=== PATIENT | male | born 1945 | race Caucasian/White ===

== ENCOUNTER 2022-03-07 14:08 | Observation (INO) | payer MEDICARE ==
[2022-03-07] MEDS ORDERED: Melatonin 3 MG Tab PO PRN (15:23)
[2022-03-07] MEDS ORDERED: Morphine 2 MG/ML SYRINGE IVPUSH PRN (15:23)
[2022-03-07] MEDS ORDERED: LORazepam 2 MG/ML SDV IVPUSH PRN (15:23)
[2022-03-07] MEDS ORDERED: Ondansetron 4 MG/2 ML SDV IV PRN (15:23)
[2022-03-07] MEDS ORDERED: Magnesium Hydroxide 400 MG/5 ML Susp 30 ML Cup PO PRN (15:23)
[2022-03-07] MEDS ORDERED: Ondansetron 4 MG Tab.DIS PO PRN (15:23)
[2022-03-07] MEDS ORDERED: tiZANidine 2 MG Tab PO PRN (15:27)
[2022-03-07] MEDS: oxyCODONE 5 MG Tab PO PRN (16:15)
[2022-03-07] MEDS ORDERED: Non-Formulary Medication 1 Each (Metformin [Glucophage] 1,000 MG Tablet) PO SCH (17:00)
[2022-03-07] MEDS ORDERED: METOPROLOL SUCCINATE 25 MG PO SCH (17:00)
[2022-03-07] MEDS: Metoprolol Succinate 25 MG Tab.ER (PTOM) PO SCH (17:32)
[2022-03-07] MEDS: METFORMIN ER 500MG TAB (PTOM) PO SCH (17:32)
[2022-03-07] MEDS: ROSUVASTATIN 20 MG PO SCH (20:36)
[2022-03-07] MEDS: Acetaminophen 500 MG Tab PO SCH (20:36)
[2022-03-07] MEDS ORDERED: [UNRECOGNIZED DRUG - OTHER] PO SCH (21:00)
[2022-03-07] MEDS ORDERED: DOCUSATE SODIUM PO SCH (21:00)
[2022-03-07] MEDS ORDERED: SENNOSIDES PO SCH (21:00)
[2022-03-08] MEDS: Pantoprazole 40 MG Tab.CR (PTOM) PO SCH (07:28)
[2022-03-08] MEDS ORDERED: BUMETANIDE 1 MG PO SCH (08:00)
[2022-03-08] MEDS ORDERED: Non-Formulary Medication 1 Each (Lisinopril [Lisinopril] 40 MG Tablet) PO SCH (09:00)
[2022-03-08] MEDS ORDERED: Non-Formulary Medication 1 Each (Ubidecarenone [Co Q-10] 100 MG Capsule) PO SCH (09:00)
[2022-03-08] MEDS ORDERED: Non-Formulary Medication 1 Each (Aspirin [Aspirin] 325 MG Tablet) PO SCH (09:00)
[2022-03-08] MEDS ORDERED: Non-Formulary Medication 1 Each (Pantoprazole [ProTONIX***] 40 MG Tab.Cr) PO SCH (09:00)
[2022-03-08] MEDS ORDERED: Non-Formulary Medication 1 Each (Rosuvastatin [Crestor] 10 MG Tablet) PO SCH (09:00)
[2022-03-08] MEDS ORDERED: ROSUVASTATIN 20 MG PO SCH (09:00)
[2022-03-08] MEDS ORDERED: VENLAFAXINE HCL 37.5 MG PO SCH (09:00)
[2022-03-08] MEDS: BUMETANIDE 1 MG PO SCH ×3 (10:23→20:27)
[2022-03-08] MEDS: METFORMIN ER 500MG TAB (PTOM) PO SCH ×2 (10:24→17:09)
[2022-03-08] MEDS: Aspirin 325 MG Tab.EC PO SCH (10:24)
[2022-03-08] MEDS: Enoxaparin 40 MG/0.4 ML Syringe SUBCUT SCH (10:24)
[2022-03-08] MEDS: VENLAFAXINE 37.5 MG PO SCH (10:24)
[2022-03-08] MEDS: LISINOPRIL 40MG TAB (PTOM) PO SCH (10:25)
[2022-03-08] MEDS: CO Q PO SCH (10:25)
[2022-03-08] MEDS: Acetaminophen 500 MG Tab PO SCH ×3 (10:27→20:26)
[2022-03-08] MEDS: oxyCODONE 5 MG Tab PO PRN ×2 (17:06→22:28)
[2022-03-08] MEDS: Metoprolol Succinate 25 MG Tab.ER (PTOM) PO SCH (18:03)
[2022-03-08] MEDS: ROSUVASTATIN 20 MG PO SCH (20:29)
[2022-03-09] MEDS: Pantoprazole 40 MG Tab.CR (PTOM) PO SCH (07:39)
[2022-03-09] MEDS: METFORMIN ER 500MG TAB (PTOM) PO SCH ×2 (07:39→16:29)
[2022-03-09] MEDS: BUMETANIDE 1 MG PO SCH ×2 (08:48→21:27)
[2022-03-09] MEDS: Aspirin 325 MG Tab.EC PO SCH (08:51)
[2022-03-09] MEDS: LISINOPRIL 40MG TAB (PTOM) PO SCH (08:51)
[2022-03-09] MEDS: VENLAFAXINE 37.5 MG PO SCH (08:52)
[2022-03-09] MEDS: Enoxaparin 40 MG/0.4 ML Syringe SUBCUT SCH (08:52)
[2022-03-09] MEDS: CO Q PO SCH (08:52)
[2022-03-09] MEDS: Acetaminophen 500 MG Tab PO SCH ×3 (08:53→21:29)
[2022-03-09] MEDS: oxyCODONE 5 MG Tab PO PRN ×2 (14:16→21:30)
[2022-03-09] MEDS: Metoprolol Succinate 25 MG Tab.ER (PTOM) PO SCH (16:28)
[2022-03-09] MEDS: ROSUVASTATIN 20 MG PO SCH (21:28)
[2022-03-10] MEDS: Pantoprazole 40 MG Tab.CR (PTOM) PO SCH (07:53)
[2022-03-10] MEDS: METFORMIN ER 500MG TAB (PTOM) PO SCH ×2 (07:53→16:38)
[2022-03-10] MEDS: oxyCODONE 5 MG Tab PO PRN ×2 (08:02→20:33)
[2022-03-10] MEDS: BUMETANIDE 1 MG PO SCH ×2 (09:24→20:35)
[2022-03-10] MEDS: Enoxaparin 40 MG/0.4 ML Syringe SUBCUT SCH (09:27)
[2022-03-10] MEDS: Aspirin 325 MG Tab.EC PO SCH (09:27)
[2022-03-10] MEDS: Acetaminophen 500 MG Tab PO SCH ×3 (09:27→20:32)
[2022-03-10] MEDS: CO Q PO SCH (09:27)
[2022-03-10] MEDS: VENLAFAXINE 37.5 MG PO SCH ×2 (09:28→14:19)
[2022-03-10] MEDS: LISINOPRIL 40MG TAB (PTOM) PO SCH (09:28)
[2022-03-10] MEDS: Metoprolol Succinate 25 MG Tab.ER (PTOM) PO SCH (16:38)
[2022-03-10] MEDS: ROSUVASTATIN 20 MG PO SCH (20:32)
[2022-03-11] MEDS: oxyCODONE 5 MG Tab PO PRN ×3 (02:21→20:45)
[2022-03-11] MEDS: Pantoprazole 40 MG Tab.CR (PTOM) PO SCH (07:34)
[2022-03-11] MEDS: METFORMIN ER 500MG TAB (PTOM) PO SCH ×2 (07:35→16:51)
[2022-03-11] MEDS: LISINOPRIL 40MG TAB (PTOM) PO SCH (08:14)
[2022-03-11] MEDS: VENLAFAXINE 37.5 MG PO SCH (08:14)
[2022-03-11] MEDS: CO Q PO SCH (08:15)
[2022-03-11] MEDS: Acetaminophen 500 MG Tab PO SCH ×3 (08:15→21:54)
[2022-03-11] MEDS: Enoxaparin 40 MG/0.4 ML Syringe SUBCUT SCH (08:15)
[2022-03-11] MEDS: Aspirin 325 MG Tab.EC PO SCH (08:15)
[2022-03-11] MEDS: BUMETANIDE 1 MG PO SCH ×2 (08:16→20:34)
[2022-03-11] MEDS: Metoprolol Succinate 25 MG Tab.ER (PTOM) PO SCH (16:50)
[2022-03-11] MEDS: ROSUVASTATIN 20 MG PO SCH (20:47)
[2022-03-12] MEDS: oxyCODONE 5 MG Tab PO PRN ×2 (03:14→08:28)
[2022-03-12] MEDS: Pantoprazole 40 MG Tab.CR (PTOM) PO SCH (07:35)
[2022-03-12] MEDS: METFORMIN ER 500MG TAB (PTOM) PO SCH (07:35)
[2022-03-12 07:36] VITALS: BP 141/71; PULSE 90
[2022-03-12] MEDS: Enoxaparin 40 MG/0.4 ML Syringe SUBCUT SCH (08:29)
[2022-03-12] MEDS: VENLAFAXINE 37.5 MG PO SCH (08:29)
[2022-03-12] MEDS: BUMETANIDE 1 MG PO SCH (08:29)
[2022-03-12] MEDS: Aspirin 325 MG Tab.EC PO SCH (08:29)
[2022-03-12] MEDS: LISINOPRIL 40MG TAB (PTOM) PO SCH (08:30)
[2022-03-12] MEDS: CO Q PO SCH (08:30)
[2022-03-12] MEDS: Acetaminophen 500 MG Tab PO SCH (08:30)
== END 2022-03-12 11:45 ==
LOC: JP.MS 14:08
PROVIDERS: ADMIT Internal Medicine; ATTEND Hospitalist
DX: S42.145D Nondisplaced fracture of glenoid cavity of scapula, left shoulder, subsequent encounter for fracture with routine healing (principal); S82.141D Displaced bicondylar fracture of right tibia, subsequent encounter for closed fracture with routine healing; E11.69 Type 2 diabetes mellitus with other specified complication; I25.10 Atherosclerotic heart disease of native coronary artery without angina pectoris; Z95.1 Presence of aortocoronary bypass graft; Z96.642 Presence of left artificial hip joint; Z79.84 Long term (current) use of oral hypoglycemic drugs; Z79.82 Long term (current) use of aspirin; Z79.899 Other long term (current) drug therapy; Z20.822 Contact with and (suspected) exposure to COVID-19; W01.0XXA Fall on same level from slipping, tripping and stumbling without subsequent striking against object, initial encounter; Y93.01 Activity, walking, marching and hiking
CPT/HCPCS: 36415; 73200-26-LT; 73200-LT; 80048; 85027; 96372; 97110-GO; 97110-GP; 97116-GP; 97162-GP; 97165-GO; 97530-GP; 97535-GP; A9270-GY; G0378; G0379; J1650; U0002

== ENCOUNTER 2024-11-04 07:00 | Inpatient (IN) | payer MEDICARE ==
[2024-11-04 07:36] LABS: BASOPHILS ABSOLUTE AUTO 0.03 K/uL (0.00-0.10); BASOPHILS PERCENT AUTO 0.4 % (0.1-1.3); EOSINOPHILS PERCENT AUTO 0.3 % (0.0-5.4); HEMATOCRIT 38.4 % (38.4-49.7); HEMOGLOBIN 13.4 g/dL (12.9-16.9); IMMATURE GRAN ABSOLUTE AUTO 0.03 K/uL (0.00-0.23); IMMATURE GRAN PERCENT AUTO 0.4 % (0.0-0.7); LYMPHOCYTES ABSOLUTE AUTO 0.64 K/uL (0.8-3.3); LYMPHOCYTES PERCENT AUTO 8.3 % (11.4-47.7); MEAN CORPUSCULAR HEMOGLOBIN 31.2 pg (31.6-35.5); MEAN CORPUSCULAR HGB CONC 34.9 g/dL (31.6-35.5); MEAN CORPUSCULAR VOLUME 89.3 fL (81.4-99.0); MONOCYTES ABSOLUTE AUTO 0.99 K/uL (0.20-0.90); MONOCYTES PERCENT AUTO 12.8 % (3.3-12.6); NEUTROPHILS ABSOLUTE AUTO 6.01 K/uL (1.0-7.6); NEUTROPHILS PERCENT AUTO 77.8 % (40.0-78.1); PLATELET COUNT,PLT 198 K/uL (130-375); WHITE BLOOD CELL COUNT,WBC 7.7 K/uL (3.2-11.0)
[2024-11-04 07:38] LABS: APPEARANCE,URINE CLEAR (CLEAR); BILIRUBIN,URINE NEGATIVE (NEGATIVE); COLOR,URINE YELLOW (YELLOW); GLUCOSE,URINE NEGATIVE (NEGATIVE); KETONES,URINE TRACE mg/dL (NEGATIVE); LEUKOCYTE ESTERASE,URINE NEGATIVE (NEGATIVE); NITRITE,URINE NEGATIVE (NEGATIVE); OCCULT BLOOD,URINE TRACE-LYSED (NEGATIVE); PH,URINE 5.5 (5.0-8.0); PROTEIN,URINE 30 mg/dL (NEGATIVE); UROBILINOGEN,URINE 0.2 EU/dL (0.2-1.0)
[2024-11-04 07:43] LABS: EOSINOPHILS ABSOLUTE AUTO 0.02 K/uL (0.00-0.40)
[2024-11-04] MEDS: Sodium Chloride 0.9% 1,000 ML IV SCH ×2 (07:43→13:46)
[2024-11-04 07:49] LABS: AMORPHOUS SEDIMENT,URINE NOT SEEN; BACTERIA,URINE RARE; EPITHELIAL CELLS,URINE RARE; MUCUS,URINE NOT SEEN; RBC,URINE 0-5 (0-5); WBC,URINE 0-5 (0-5)
[2024-11-04 07:59] LABS: ALANINE AMINOTRANSFERASE,ALT 13 U/L (12-78); ALBUMIN 3.6 g/dL (3.4-5.0); ALKALINE PHOSPHATASE 95 U/L (46-116); ASPARTATE AMNIOTRANSFERASE,AST 28 U/L (15-37); BILIRUBIN TOTAL 0.5 mg/dL (0.2-1.0); BLOOD UREA NITROGEN,BUN 14 mg/dL (7-18); CALCIUM 9.4 mg/dL (8.5-10.1); CARBON DIOXIDE,CO2 27 mmol/L (21-32); CHLORIDE,CL 102 mmol/L (100-108); CREATINE KINASE,CK 614 U/L (39-308); CREATININE 1.2 mg/dL (0.8-1.3); EST CRCL DRUG DOSING (CG) 54.79 mL/min; ESTIMATED GFR 62 mL/min (>60); GLUCOSE RANDOM 133 mg/dL (74-106); POTASSIUM,K 3.4 mmol/L (3.6-5.2); PROTEIN TOTAL,TP 7.1 g/dL (6.4-8.2); SODIUM,NA 139 mmol/L (140-148); TROPONIN I HIGH SENSITIVITY 46.6 pg/mL (<=60.3)
[2024-11-04 08:00] LABS: ANION GAP 13.4 mmol/L (5.0-14.0)
[2024-11-04] MEDS: Sodium Chloride 0.9% 1,000 ML IV ONE (09:14)
[2024-11-04] MEDS: Potassium Chloride 20 MEQ Tab.ER PO ONE (09:14)
[2024-11-04] MEDS ORDERED: 50% Dextrose in Water 50 ML Syringe IV PRN (13:24)
[2024-11-04] MEDS ORDERED: Sodium Chloride 0.9% 10 ML Syringe FLUSH PRN (13:24)
[2024-11-04] MEDS ORDERED: Glucose Gel 15 GM in 37.5 GM Tube PO PRN (13:24)
[2024-11-04] MEDS ORDERED: Ondansetron 4 MG/2 ML SDV IV PRN (13:24)
[2024-11-04] MEDS: Insulin Lispro 100 Unit/ML 3 ML KwikPen SUBCUT SCH (13:45)
[2024-11-04] MEDS: Rosuvastatin 10 MG Tab PO SCH (14:48)
[2024-11-04] MEDS: Polyethylene Glycol 3350 Powder 17 GM Packet PO SCH (14:49)
[2024-11-04] MEDS: Venlafaxine 37.5 MG Cap.ER PO SCH (14:49)
[2024-11-04] MEDS: Enoxaparin 40 MG/0.4 ML Syringe SUBCUT SCH (14:49)
[2024-11-04] MEDS: Aspirin 325 MG Tab.EC PO SCH (14:49)
[2024-11-04] MEDS: Sennosides/Docusate Sodium 50-8.6 MG Tab PO SCH (14:49)
[2024-11-04] MEDS: Lisinopril 20 MG Tab PO SCH (14:49)
[2024-11-04] MEDS: Pantoprazole 40 MG Tab.CR PO SCH (14:49)
[2024-11-04] MEDS: Metoprolol Succinate 25 MG Tab.ER PO SCH (16:39)
[2024-11-05 05:01] LABS: HEMATOCRIT 36.4 % (38.4-49.7); HEMOGLOBIN 12.7 g/dL (12.9-16.9); MEAN CORPUSCULAR HEMOGLOBIN 31.5 pg (31.6-35.5); MEAN CORPUSCULAR HGB CONC 34.9 g/dL (31.6-35.5); MEAN CORPUSCULAR VOLUME 90.3 fL (81.4-99.0); RED BLOOD CELL COUNT 4.03 M/uL (4.14-5.76); WHITE BLOOD CELL COUNT,WBC 6.1 K/uL (3.2-11.0)
[2024-11-05 05:17] LABS: ANION GAP 8.1 mmol/L (5.0-14.0); CALCIUM 8.7 mg/dL (8.5-10.1); CREATININE 1.1 mg/dL (0.8-1.3); EST CRCL DRUG DOSING (CG) 59.77 mL/min; MAGNESIUM 1.6 mg/dL (1.8-2.4); POTASSIUM,K 3.6 mmol/L (3.6-5.2)
[2024-11-05] MEDS: Magnesium Sulfate/Water Premix 2 GM in Premix Bag 1 BAG IV SCH (09:39)
[2024-11-05] MEDS: Magnesium Oxide 400 MG Tab PO SCH (09:39)
[2024-11-05] MEDS ORDERED: Haloperidol Lactate 5 MG/ML SDV IVPUSH PRN (17:19)
[2024-11-05] MEDS: Gentamicin 0.3% Ophth Soln 5 ML Bottle EYELF SCH (21:22)
[2024-11-05] MEDS: Acetaminophen 325 MG Tab PO PRN (21:22)
[2024-11-05] MEDS: Melatonin 3 MG Tab PO SCH (21:23)
[2024-11-06 06:17] LABS: MAGNESIUM 1.9 mg/dL (1.8-2.4)
[2024-11-07] MEDS: prednisoLONE Acetate 1% Ophth Susp 5 ML Bottle EYELF SCH (15:21)
[2024-11-08 06:04] VITALS: BP 123/58; PULSE 68
[2024-11-09] MEDS ORDERED: DULAGLUTIDE 0.75 MG/0.5 ML SUBCUT SCH (09:00)
== END 2024-11-08 11:12 | disposition home or self-care (01) | DRG 564 ==
LOC: JP.ED 07:00 → JP.MS 08:54
PROVIDERS: ADMIT Hospitalist; ATTEND Internal Medicine
DX: T79.6XXA Traumatic ischemia of muscle, initial encounter (principal); U07.1 COVID-19; I10 Essential (primary) hypertension; E11.9 Type 2 diabetes mellitus without complications; I25.10 Atherosclerotic heart disease of native coronary artery without angina pectoris; E83.42 Hypomagnesemia; G30.9 Alzheimer's disease, unspecified; F02.80 Dementia in other diseases classified elsewhere, unspecified severity, without behavioral disturbance, psychotic disturbance, mood disturbance, and anxiety; W19.XXXA Unspecified fall, initial encounter; Y92.009 Unspecified place in unspecified non-institutional (private) residence as the place of occurrence of the external cause; H91.90 Unspecified hearing loss, unspecified ear; E11.69 Type 2 diabetes mellitus with other specified complication; Z96.649 Presence of unspecified artificial hip joint; Z79.899 Other long term (current) drug therapy; Z79.82 Long term (current) use of aspirin; Z79.84 Long term (current) use of oral hypoglycemic drugs; Z95.1 Presence of aortocoronary bypass graft; Z98.890 Other specified postprocedural states; Z85.46 Personal history of malignant neoplasm of prostate; Z87.81 Personal history of (healed) traumatic fracture
CPT/HCPCS: 36415; 80053; 81001; 82550; 84484; 85025; 87428; 93005; 96360; 99285; J7030; 80048; 82947; 83735; 85027; 93010; 97110-GP; 97161-GP; 97530-GP; 99223; 99233; 99238; A9270-GY; C1758; J1650; J3475

== ENCOUNTER 2025-09-25 21:03 | Emergency (ER) | payer MEDICARE ==
[2025-09-25 21:11] LABS: BASOPHILS PERCENT AUTO 0.1 % (0.1-1.3); EOSINOPHILS PERCENT AUTO 0.1 % (0.0-5.4); IMMATURE GRAN PERCENT AUTO 0.3 % (0.0-0.7); LYMPHOCYTES ABSOLUTE AUTO 0.22 K/uL (0.8-3.3); LYMPHOCYTES PERCENT AUTO 3.2 % (11.4-47.7); MONOCYTES ABSOLUTE AUTO 0.23 K/uL (0.20-0.90); MONOCYTES PERCENT AUTO 3.4 % (3.3-12.6); NEUTROPHILS ABSOLUTE AUTO 6.36 K/uL (1.0-7.6); NEUTROPHILS PERCENT AUTO 92.9 % (40.0-78.1); PLATELET COUNT,PLT 215 K/uL (130-375); RED BLOOD CELL COUNT 4.73 M/uL (4.14-5.76); WHITE BLOOD CELL COUNT,WBC 6.9 K/uL (3.2-11.0)
[2025-09-25 21:12] LABS: BASOPHILS ABSOLUTE AUTO 0.01 K/uL (0.00-0.10); EOSINOPHILS ABSOLUTE AUTO 0.01 K/uL (0.00-0.40); IMMATURE GRAN ABSOLUTE AUTO 0.02 K/uL (0.00-0.23)
[2025-09-25 21:32] LABS: A/G RATIO 1.1 (1.2-2.2); ALANINE AMINOTRANSFERASE,ALT 18 U/L (12-78); ASPARTATE AMNIOTRANSFERASE,AST 19 U/L (15-37); BILIRUBIN TOTAL 0.7 mg/dL (0.2-1.0); BLOOD UREA NITROGEN,BUN 24 mg/dL (7-18); CARBON DIOXIDE,CO2 23 mmol/L (21-32); CHLORIDE,CL 99 mmol/L (100-108); CREATININE 1.3 mg/dL (0.8-1.3); EST CRCL DRUG DOSING (CG) 49.81 mL/min; ESTIMATED GFR 56 mL/min (>60); GLUCOSE RANDOM 171 mg/dL (74-106); POTASSIUM,K 4.0 mmol/L (3.6-5.2); PROTEIN TOTAL,TP 7.2 g/dL (6.4-8.2); SODIUM,NA 135 mmol/L (140-148)
[2025-09-25] MEDS: Ondansetron 4 MG/2 ML SDV IVPUSH ONE (21:36)
[2025-09-25] MEDS: Iopamidol 612 MG/ML 100 ML Bottle IV SCH (22:11)
[2025-09-25 23:08] VITALS: BP 130/66; PULSE 93
[2025-09-25 23:46] LABS: APPEARANCE,URINE CLEAR (CLEAR); GLUCOSE,URINE NEGATIVE (NEGATIVE); OCCULT BLOOD,URINE TRACE-INTACT (NEGATIVE)
[2025-09-26 00:13] LABS: SQUAMOUS EPITHELIAL CELLS,UR RARE /HPF; UROTHELIAL CELLS,URINE NOT SEEN /HPF
== END 2025-09-26 00:50 | disposition home or self-care (01) ==
LOC: JP.ED 21:03
DX: R11.2 Nausea with vomiting, unspecified (principal); R19.7 Diarrhea, unspecified; I10 Essential (primary) hypertension; E11.9 Type 2 diabetes mellitus without complications; Z95.5 Presence of coronary angioplasty implant and graft; Z79.82 Long term (current) use of aspirin; Z79.84 Long term (current) use of oral hypoglycemic drugs; Z79.899 Other long term (current) drug therapy
CPT/HCPCS: 36415; 71045; 74177; 80053; 81001; 85025; 93005; 96361; 96374; 99285; C1758; J2405; J7030; Q9967